=== PATIENT | male | born 1985 | race Caucasian/White ===

== ENCOUNTER 2017-08-08 05:44 | Day surgery (SDC) | payer OTHER ==
[~2017-08-08] VITALS: Ht 175.3 cm; Wt 81.7 kg
[2017-08-08] MEDS ORDERED: ABILIFY MAINTE300 M1 IM (05:58)
--- NOTE | 2017-08-08 08:59 | NUR ---
ICED WATER GIVEN. OFFICER @ BS. PATIENT DENIES ADD'L NEEDS @ THIS TIME.
--- NOTE | 2017-08-08 09:04 | NUR ---
[facility]. 0811 ORAL AIRWAY REMOVED. 0820 C/O CRAMPING IN STOMACH. DECLINED PAIN MED WHEN OFFERED. SIPPING ON WATER AND EATING JELLO.
[2017-08-08] MEDS ORDERED: NORCO 5-325 TA1 EACH PO (09:09)
--- NOTE | 2017-08-08 10:33 | NUR ---
CALL REPORT GIVEN TO JUANY BOYLE AT [facility] AND HER QUESTIONS ARE ANSWERED.
--- NOTE | 2017-08-08 11:59 | OR ---
[facility] [address], [place] [address] Signed DATE OF OPERATION: 08/08/2017 SURGEON: Margie Angulo MD PREOPERATIVE DIAGNOSIS: Incarcerated umbilical hernia (8 mm). POSTOPERATIVE DIAGNOSIS: Incarcerated umbilical hernia (8 mm). PROCEDURE: Primary umbilical herniorrhaphy with intraabdominal Ventralex mesh (4.3 cm). ESTIMATED BLOOD LOSS: None. INDICATIONS: Pedro is a 31[facility] [place] He has been having trouble with an umbilical hernia. It is partially reducible. He has been trying to exercise and do sit ups to stay in shape. He said it has been quite bothersome. He had been to the [facility] and they asked him to come see me as a general surgeon. I explained to Pedro the nature of his umbilical hernia. We discussed primary suture repair versus mesh repair. He also understands expected intraop and postop course. There is risk of surgery including, but not limited to bleeding, infection, scarring, change in contour of the skin, damage to bowel, infection of mesh requiring removal, recurrent hernias, and chronic pain. He expressed understanding and wished to proceed. PROCEDURE NOTE: Pedro was taken into our operating room and placed in the supine position under general endotracheal tube anesthesia. He was given preoperative antibiotics along with subcutaneous heparin. SCDs were utilized as well. He was then prepped and draped in the usual sterile fashion. Our standard transverse incision was developed with a 15-blade knife and carried down around the umbilicus bluntly and with the cautery. We the hernia sac from the fascial defect with the help of the cautery. We amputated the fat and passed it off the field. It was incarcerated through the fascial defect. We then chose our 4.3 cm round Ventralex mesh and we placed that in the abdomen and brought it up, flushed against the posterior abdominal wall. The fascial defect was closed transversely with a running #1 Prolene suture. Several passes of the suture went through the tab on the mesh to help keep it in place. The mesh was then cut flush with Electronically Signed By: MARGIE ANGULO MD 08/08/17 1159 PATIENT NAME: PEDRO TYSON OPERATIVE REPORT DATE OF : 81 REPORT #: [id number] PHYSICIAN: MARGIE ANGULO MD PCP: GERHARD WYNNE MD REPORT IS CONFIDENTIAL AND NOT TO BE RELEASED WITHOUT AUTHORIZATION [facility] [address] [place] [id number] Signed the muscle and discarded. The wound was then infiltrated with local anesthetic. The wound was irrigated and suctioned out until clear. The umbilical skin was brought down to the midline umbilical fascia with an interrupted 2-0 PDS suture. The dermis was reapproximated with interrupted 3-0 subcuticular Monocryl sutures. The skin edges were reapproximated with a running 6-0 fast absorbing plain gut suture. Dry gauze and tape were then applied. Pedro was awakened from his anesthesia, extubated in the OR, and taken to recovery room in stable condition. Margie Angulo MD ALB/MODL /[id number] cc: MD Gerhard Bhatt MD Copies: MARGIE ANGULO MD, LELAND MD ~ Electronically Signed By: MARGIE ANGULO MD 08/08/17 1159 PATIENT NAME: PEDRO TYSON OPERATIVE REPORT DATE OF : 81 REPORT #: [id number] PHYSICIAN: MARGIE ANGULO MD PCP: GERHARD WYNNE MD REPORT IS CONFIDENTIAL AND NOT TO BE RELEASED WITHOUT AUTHORIZATION
== END 2017-08-08 10:27 | disposition home or self-care (01) ==
LOC: DS 05:44 → MS 09:00 → DS 10:27
PROVIDERS: Colon & Rectal Surgery
PROC: 0WUF0JZ Supplement Abdominal Wall with Synthetic Substitute, Open Approach (ICD-10-PCS; principal; 2017-08-08 06:45)
DX: K42.0 Umbilical hernia with obstruction, without gangrene (principal); F20.9 Schizophrenia, unspecified; Z87.891 Personal history of nicotine dependence
CPT/HCPCS: 00750; C1781; J0330; J0690; J1644; J1885; J2250; J2405; J2704; J3010; J7120